=== PATIENT | female | born 1975 | race Caucasian/White ===

== ENCOUNTER 2018-05-21 17:17 | Emergency (ER) | payer MEDICAID ==
[~2018-05-21] VITALS: Ht 157.5 cm; Wt 91.6 kg
[2018-05-21 17:39] VITALS: Ht 157.5 cm; Wt 91.6 kg
[2018-05-21] MEDS ORDERED: LIDOCAINE 1% (MDV) 10 ML INJ INJ STA (18:05)
[2018-05-21] MEDS ORDERED: KETOROLAC 30 MG INJ IM STA (18:05)
--- NOTE | 2018-05-21 18:34 | ERD ---
ER Documentation Chief Complaint Chief Complaint right hand laceration with broken glass today HPI 43-year-old female with no past medical or surgical history who presents with right hand laceration. Patient states she was washing dishes and thinks she may have cut her hand on some broken glass or broken dish while placing her hand and dishwater. Sustained a laceration to lateral aspect of fifth digit on the right hand. Noticed moderate mild bleeding which was stopped with application of pressure. She otherwise without complaint. States she rarely follows up with her PMD as scheduled for follow-up next week. Patient stating she does not want stitches placed. ROS All systems reviewed and are negative except as per history of present illness. Medications Home Meds Active Scripts Acetaminophen* (Tylophen*) 500 Mg Capsule, 1 CAP PO Q6H PRN for PAIN AND OR ELEVATED TEMP, #20 CAP Prov:NESTOR PENA PA-C 05/21/18 Allergies Allergies: Coded Allergies: No Known Allergy (Unverified , 05/21/18) PMhx/Soc Medical and Surgical Hx: pt denies Medical Hx History of Surgery: Yes (Appendectomy, urethra sx) Anesthesia Reaction: No Hx Alcohol Use: No Hx Substance Use: No Hx Tobacco Use: No Smoking Status: Never smoker FmHx Family History: No diabetes, No coronary disease, No other Physical Exam Vitals Vital Signs Date Temp Pulse Resp B/P (MAP) Pulse Ox O2 O2 Flow FiO2 Time Delivery Rate 05/21/18 98.0 66 18 134/75 96 Room Air 19:05 (94) 05/21/18 98.7 78 18 171/86 99 17:39 (114) Physical Exam I have reviewed the triage vital signs. Const: Well nourished, well developed, appears stated age Eyes: PERRL, no conjunctival injection HENT: NCAT, Neck supple without meningismus CV: RRR, Warm, well-perfused extremities RESP: CTAB, Unlabored respiratory effort GI: soft, non-tender, non-distended, no masses MSK: No gross deformities appreciated, R 5th digit with 2 /12 cm laceration, moving all fingers, SILT throughout Skin: Warm, dry. No rashes Neuro: grossly non focal Psych: Appropriate mood and affect. Results 24 hrs Laboratory Tests Test 05/21/18 18:19 POC Beta HCG, Qualitative NEGATIVE Current Medications Medications Dose Sig/Josep Start Time Status Last (Trade) Ordered Route PRN Stop Time Admin Dose Reason Admin Lidocaine 10 ml ONCE STAT 05/21/18 DC HCl INJ 18:05 05/21/18 (Lidocaine 18:06 1% (Mdv) 10 ml) Ketorolac 30 mg ONCE STAT 05/21/18 DC 05/21/18 Tromethamine IM 18:05 05/21/18 18:28 (Toradol) 18:06 Procedures/MDM 43-year-old female presents with superficial laceration of digit of right hand. Wound mostly superficial with no tendon or deep tissue involvement. Wound copiously irrigated. Laceration repaired with glue and Steri-Strips. No evidence of compartment syndrome, neurologic injury, vascular injury, open joint, tendon laceration, or foreign body. She is neurovascular intact able to move hand fingers without issue. Patient is appropriate for outpatient follow up. 48 hour wound check. Scar minimization instructions given. DISPOSITION PLAN: We discussed follow up with the patient's primary care doctor within 24 to 48 hours. Patient counseled regarding my diagnostic impression and care plan. Prior to discharge all questions answered. Pt agrees with treatment plan and understands strict return precautions. Precautionary instructions provided including instructions to return to the ER if not improving or for any worsening or changing symptoms or concerns. Departure Diagnosis: Primary Impression: Laceration Condition: Stable Patient Instructions: Laceration (Sure+Close) NESTOR PENA PA-C May 21, 2018 18:34 CANDIS ZIMMER DO May 22, 2018 12:15
[2018-05-21] MEDS ORDERED: ACET500C5 PO (18:52)
[2018-05-21 19:05] VITALS: BP 134/75; PULSE 66; RESP 18
== END 2018-05-21 19:08 | disposition home or self-care (01) ==
LOC: FTE 17:17
DX: S61.216A Laceration without foreign body of right little finger without damage to nail, initial encounter (principal); W25.XXXA Contact with sharp glass, initial encounter; Y92.9 Unspecified place or not applicable
CPT/HCPCS: 12001; 81025; 96372; J1885; Z7502; Z7610